=== PATIENT | male | born 1995 | race Caucasian/White ===

== ENCOUNTER 2020-03-10 16:52 | Emergency (ER) | payer BC ==
[2020-03-10 17:02] VITALS: BP 118/78; PULSE 75; TEMP 99.2; BMI 21.4
--- OUTSIDE RECORDS SUMMARY | 2020-03-10 17:06 | XMS ---
:1995 [facility] Providers Name Role Phone Preston Brown Steven Unavailable Apuzzo, Steven Unavailable Apuzzo, Steven Unavailable Apuzzo, Steven Unavailable Apuzzo, Steven Unavailable Apuzzo, Steven Unavailable Apuzzo, Steven Unavailable Apuzzo, Steven Unavailable Apuzzo, Steven Unavailable Apuzzo, Steven Unavailable Re-disclosure Warning The records that you are about to access may contain information from federally- assisted alcohol or drug abuse programs. If such information is present, then the following federally mandated warning applies: This information has been disclosed to you from records protected by federal confidentiality rules (42 CFR part 2). The federal rules prohibit you from making any further disclosure of this information unless further disclosure is expressly permitted by the written consent of the person to whom it pertains or as otherwise permitted by 42 CFR part 2. A general authorization for the release of medical or other information is NOT sufficient for this purpose. The Federal rules restrict any use of the information to criminally investigate or prosecute any alcohol or drug abuse patient.The records that you are about to access may contain highly sensitive health information, the redisclosure of which is protected by Article 27-F of the [place] State Public Health law. If you continue you may haveaccess to information: Regarding HIV / AIDS; Provided by facilities licensed or operated by the [facility] Office of Mental Health; or Provided by the [facility] Office for People With Developmental Disabilities. If such information is present, then the following [facility] mandated warning applies: This information has been disclosed to you from confidential records which are protected by state law. State law prohibits you from making any further disclosure of this information without the specific written consent of the person to whom it pertains, or as otherwise permitted by law. Any unauthorized further disclosure in violation of state law may result in a fine or halfway sentence or both. A general authorization for the release of medical or other information is NOT sufficient authorization for further disclosure. Encounters Encounter Providers Location Date Indications Data Source(s ) Attender: Preston 02/28/2020 [facility] ( [facility] 12:00:00 AM EDT Medical, PC) Office Medications Medication Brand Start Product Dose Route Administrative Pharmacy [facility] Indications Reaction Description Data Name Date Form Instructions Instructions Source(s) pantoprazol PANTOP DELAYED 90 complet HURTADO TOPRAZOLE [facility] (St e 40 MG RAZOLE 2019 RELEASE ed [facility] Delayed :[id number] 12:00: TABLET Medica l, Release 0 00 AM PC) Oral Tablet EDT PANTOPRAZOL [id number] KETOCONAZOL complet KETOCONA ZOLE [facility] (St E EXTERNAL 2018 ed EXTERNAL [facility] SHAMPOO: 12:00: SHAMPOO Medica l, 00 AM PC) EDT Fluconazole FLUCON 09/21/ TABLET 4 complet FLUC ONAZOLE [facility] (St 150 MG Oral AZOLE: 2018 ed [facility] Tablet [id number] 12:00: Medical, FLUCONAZOLE 00 AM PC) :[id number] EDT NYSTATIN complet NYSTATIN ME D[facility] (St EXTERNAL 2017 ed EXTERNAL [facility] OINTMENT: 12:00: OINTMENT Medi siva, 00 AM PC) EDT Insurance Providers Payer name Policy type Policy ID Covered Covered green party's Policy P lenore / Coverage green party ID relationship to [employer] ormation type rasheed BC PPO [id number] SP [id number] EMPIRE [id number]/B 00 LUE [employer] [place] EMPIRE [id number] [facility]/ 59 [facility] Problems, Conditions, and Diagnoses Code Display Name Description Problem Type Effective Data Sour ce(s) Dates K21.9 Gastro-esophageal GASTRO-ESOPHAGEAL Problem 02/28/2020 [facility] (St reflux disease REFLUX DISEASE 12:00:00 AM [facility] without esophagitis WITHOUT ESOPHAGITIS EDT Medical, PC) B35.4 Tinea corporis TINEA CORPORIS Problem 09/21/2018 [facility] (St 12:00:00 AM [facility] T Medical, ) 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 02/04/2018 [facility] D[facility] (St genital organs, GENITAL ORGANS, 12:00:00 AM [facility] unspecified UNSPECIFIED EDT Medical, PC) Z30.09 Encounter for other ENCOUNTER FOR OTHER Problem 018 [facility] (St general counseling GENERAL COUNSELING 12:00:00 AM [facility] and advice on AND ADVICE ON T Medical, ) contraception CONTRACEPTION Z11.3 Encounter for ENCOUNTER FOR Problem 02/04/2018 [facility] ( St screening for SCREENING FOR 12:00:00 AM [facility] infections with a INFECTIONS WITH A EDT Medical, ) predominantly PREDOMINANTLY sexual mode of SEXUAL MODE OF transmission TRANSMISSION 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, 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, NOT Problem 12/01/2017 MED[facility] EN (St elsewhere ELSEWHERE 12:00:00 AM [facility] classified CLASSIFIED EDT Medical, PC) B37.42 Candidal balanitis CANDIDAL BALANITIS Problem 8 [facility] R21 Rash and other RASH AND OTHER Problem 12/01/2017 [facility] (St nonspecific skin NONSPECIFIC SKIN 12:00:00 AM J ohn's eruption ERUPTION EDT Medical, PC) 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 CHLAMYDIAL CYSTITIS Problem 018 [facility] (St and urethritis AND URETHRITIS 12:00:[facility] ) B36.0 Pityriasis PITYRIASIS Problem 11/02/2017 [facility] (St versicolor VERSICOLOR [facility]:00:[facility] 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 OF Problem 018 [facility] (St trunk TRUNK 12:00:00 AM [facility], ) A69.29 Other conditions OTHER CONDITIONS Problem 10/12/2017 ME D[facility] (St associated with ASSOCIATED WITH 12:00:00 AM [facility] Lyme disease LYME DISEASE ED Medical, P C) R53.83 Other fatigue OTHER FATIGUE Problem 10/12/2017 [facility] ( St 12:00:00 AM [facility], ) M54.2 Cervicalgia CERVICALGIA Problem 10/12/2017 [facility] (St 12:00:00 AM [facility], ) R19.7 Diarrhea, DIARRHEA, Problem 10/12/2017 [facility] (St unspecified UNSPECIFIED 12:00:00 AM [facility], ) Surgeries/Procedures Procedure Description Date Indications Data Source(s) Documentation of current 02/28/2020 [facility] ([facility] medications (procedure) 12:00:00 AM EDT jermaine, ) Documentation of current 02/28/2020 [facility] ([facility] medications (procedure) 12:00:00 AM EDT [facility], ) OFFICE OUTPATIENT VISIT 02/28/2020 [facility] EN ([facility] 15 MINUTES 12:00:00 AM [facility], ) Documentation of current 09/21/2018 [facility] ([facility] medications (procedure) 12:00:00 AM EDT jermaine, ) Documentation of current 09/21/2018 [facility] ([facility] medications (procedure) 12:00:00 AM EDT jermaine, ) Documentation of current 09/21/2018 [facility] ([facility] medications (procedure) 12:00:00 AM EDT jermaine, ) Documentation of current 09/21/2018 [facility] ([facility] medications (procedure) 12:00:00 AM EDT jermaine, ) OFFICE OUTPATIENT VISIT 09/21/2018 [facility] ([facility] 25 MINUTES 12:00:00 AM [facility], ) COLLECTION VENOUS BLOOD 09/21/2018 [facility] ([facility] VENIPUNCTURE 12:00:00 AM [facility], ) Documentation of current 02/04/2018 [facility] ([facility] medications (procedure) 12:00:00 AM EDT edical, ) OFFICE OUTPATIENT VISIT 02/04/2018 [facility] EN ([facility] 25 MINUTES 12:00:00 AM EDT Medical, ) COLLECTION VENOUS BLOOD 02/04/2018 [facility]PATIENT VISIT 12/01/2017 [facility] ([facility] 10 [facility] HANDLG&/OR CONVEY OF SPEC 10/12/2017 ME [facility] ([facility] FOR TR OFFICE TO LAB 12:00:00 AM EDT [facility], ) COLLECTION VENOUS BLOOD 10/12/2017 [facility] ([facility] Results ID Date Data Source [id number] 09/21/2018 12:00:00 AM EDT [facility] (St [facility], ) Name Value Range Interpretation Code Description Data Nadia rce(s) Supporting Document(s ) RPR Non Reactive Normal (applies to [facility] ( St non-numeric [facility] results) [facility], ) ID Date Data Source [id number] 09/21/2018 12:00:00 AM EDT [facility] (St [facility], ) Name Value Range Interpretation Description Data Sup porting Code Source(s) Document(s ) Interpretive Normal (applies [facility] (St Comment to non-numeric [facility] results) [facility], ) Triiodothyronine 3.6 Normal (applies [facility] (St (T3), Free pg/mL to non-numeric [facility] results) [facility], ) ID Date Data Source [id number] 09/21/2018 12:00:00 AM EDT [facility] (St [facility], ) Name Value Range Interpretation Code Description Data Nadia rce(s) Supporting Document(s ) T4,Free 1.30 ng/dL Normal (applies to [facility] (St (Direct) non-numeric [facility] results) [facility], ) ID Date Data Source [id number] 09/21/2018 12:00:00 AM EDT [facility] (St [facility], ) Name Value Range Interpretation Code Description Data Nadia rce(s) Supporting Document(s ) TSH 0.315 Below low normal [facility] (St uIU/mL [facility], ) ID Date Data Source [id number] 09/21/2018 12:00:00 AM EDT [facility] (St [facility], ) Name Value Range Interpretation Description Data Sup porting Code Source(s) Document(s ) HIV Screen Non Normal (applies [facility] (St 4th Reactive to non-numeric [facility] Generation results) Medical, ) wRfx ID Date Data Source [id number] 09/21/2018 12:00:00 AM EDT [facility] (St [facility], ) Name Value Range Interpretation Description Data Sup porting Code Source(s) Document(s ) Vitamin D, 32.5 Normal (applies to [facility] (St 25-Hydroxy ng/mL non-numeric [facility] results) Medical, ) ID Date Data Source [id number] 09/21/2018 12:00:00 AM EDT [facility] (St [facility], ) Name Value Range Interpretation Description Data Sup porting Code Source(s) Document(s ) Hemoglobin 5.5 % Normal (applies to [facility] (St A1c/Hemoglobin. non-numeric [facility] total in Blood results) Medical, ) ID Date Data Source [id number] 09/21/2018 12:00:00 AM EDT [facility] (St [facility], ) Name Value Range Interpretation Description Data Sup porting Code Source(s) Document(s ) Chlamydia Negative Normal (applies [facility] (St trachomatis rRNA to non-numeric [facility] [Presence] in results) Medical, ) Unspecified specimen by Probe and target amplification method Neisseria Negative Normal (applies [facility] (St gonorrhoeae rRNA to non-numeric [facility] [Presence] in results) Medical, ) Unspecified specimen by Probe and target amplification method ID Date Data Source [id number] 09/21/2018 12:00:00 AM EDT [facility] (St [facility], ) Name Value Range Interpretation Code Description Data Nadia rce(s) Supporting Document(s ) HSV-1 DNA Negative Normal (applies to [facility] (St non-numeric [facility] results) Medical, ) HSV-2 DNA Negative Normal (applies to [facility] (St non-numeric [facility] results) Medical, ) ID Date Data Source [id number] 09/21/2018 12:00:00 AM EDT [facility] (St [facility], ) Name Value Range Interpretation Description Data Sup porting Code Source(s) Document(s ) Hepatitis A Negative Normal (applies [facility] (St virus IgM Ab to non-numeric [facility] [Presence] in results) Medical, ) Serum or Plasma by Immunoassay HBsAg Screen Negative Normal (applies [facility] (St to non-numeric [facility] results) Medical, PC) Hep C Virus Ab <0.1 Normal (applies [facility] (S t to non-numeric [facility] results) Medical, PC) Hepatitis B Negative Normal (applies [facility] (St virus core IgM to non-numeric [facility] Ab [Presence] results) Medical, ) in Serum or Plasma by Immunoassay ID Date Data Source [id number] 09/21/2018 12:00:00 AM EDT [facility] ([facility], ) Name Value Range Interpretation Description Data Sup porting Code Source(s) Document(s ) Triglyceride 91 mg/dL Normal (applies [facility] (St [Mass/volume] in to non-numeric [facility] Serum or Plasma results) Medical, ) Cholesterol 194 Normal (applies [facility] (St [Mass/volume] in mg/dL to non-numeric [facility] Serum or Plasma results) Medical, PC) VLDL Cholesterol 18 mg/dL Normal (applies [facility] (St Siva to non-numeric [facility] results) Medical, ) HDL Cholesterol 45 mg/dL Normal (applies [facility] ( St to non-numeric [facility] results) Medical, ) LDL Cholesterol 131 Above high normal [facility] (St Calc mg/dL [facility], ) ID Date Data Source [id number] 09/21/2018 12:00:00 AM EDT [facility] ([facility], ) Name Value Range Interpretation Description Data Sup porting Code Source(s) Document(s ) Specific gravity 1.027 Normal (applies [facility] (St of Pericardial to non-numeric [facility] fluid by results) Medical, Refractometry ) pH of Lower 6.5 Normal (applies [facility] (St respiratory to non-numeric [facility] specimen results) Medical, PC) Urine-Color Yellow Normal (applies [facility] (St to non-numeric [facility] results) Medical, PC) Appearance of Clear Normal (applies [facility] (St Abdomen to non-numeric [facility]'s results) Medical, PC) WBC Esterase Negative Normal (applies [facility] (St to non-numeric [facility] results) Medical, PC) Protein Negative Normal (applies [facility] (St [Mass/volume] in to non-numeric [facility] Lower results) Medical, respiratory PC) specimen Glucose Negative Normal (applies [facility] (St [Mass/volume] in to non-numeric [facility] Urine collected results) Medical, for unspecified PC) duration Ketones Trace Abnormal (applies [facility] (St [Presence] in to non-numeric [facility] Blood by Tablet results) Medical, PC) Occult Blood Negative Normal (applies [facility] (St to non-numeric [facility] results) Medical, PC) Urobilinogen,Jairo 1.0 EU/dL Normal (applies [facility] (St i-Qn to non-numeric [facility] results) Medical, PC) Bilirubin Negative Normal (applies [facility] (St [Presence] in to non-numeric [facility] Peritoneal fluid results) Medical, PC) Nitrite, Urine Negative Normal (applies [facility] (S t to non-numeric [facility] results) Medical, PC) Microscopic Normal (applies [facility] (St Examination to non-numeric [facility] results) Medical, PC) ID Date Data Source [id number] 09/21/2018 12:00:00 AM EDT [facility] (St [facility], PC) Name Value Range Interpretation Description Data Sup porting Code Source(s) Document(s ) Glucose 94 mg/dL Normal (applies [facility] (St [Mass/volume] in to non-numeric [facility] Urine collected for results) Medical, unspecified PC) duration Urea nitrogen 9 mg/dL Normal (applies [facility] (St [Mass/volume] in to non-numeric [facility] Serum or Plasma results) Medical, PC) Creatinine 1.03 Normal (applies [facility] (St [Interpretation] in mg/dL to non-numeric [facility] s Urine results) Medical, PC) eGFR If Africn Am 119 Normal (applies [facility] (St mL/min/1 to non-numeric [facility] .73 results) Medical, PC) eGFR If NonAfricn 103 Normal (applies [facility] (St Am mL/min/1 to non-numeric [facility] .73 results) Medical, PC) BUN/Creatinine 9 Normal (applies [facility] (S t Ratio to non-numeric [facility] results) Medical, ) Sodium 140 Normal (applies [facility] (St [Moles/volume] in mmol/L to non-numeric [facility] Serum or Plasma results) Medical, ) Potassium 4.6 Normal (applies [facility] (St [Mass/volume] in mmol/L to non-numeric [facility] Blood results) Medical, ) Calcium 10.0 Normal (applies [facility] (St [Moles/volume] in mg/dL to non-numeric [facility] Urine collected for results) [facility], unspecified ) duration Chloride 99 Normal (applies [facility] (St [Moles/volume] in mmol/L to non-numeric [facility] Serum or Plasma results) Medical, ) Microalbumin 5.0 g/dL Normal (applies [facility] (St [Mass/time] in to non-numeric [facility] Urine collected for results) [facility], unspecified ) duration Protein 7.7 g/dL Normal (applies [facility] (St [Mass/volume] in to non-numeric [facility] Serum or Plasma results) Medical, ) A/G Ratio 1.9 Normal (applies [facility] (St to non-numeric [facility] results) Medical, ) Globulin, Total 2.7 g/dL Normal (applies [facility] ( St to non-numeric [facility] results) Medical, ) Alkaline 59 IU/L Normal (applies [facility] (St phosphatase to non-numeric [facility] [Enzymatic results) Medical, activity/volume] in PC) Serum, Plasma or Blood Bilirubin.total 0.4 Normal (applies [facility] ( St [Mass/volume] in mg/dL to non-numeric [facility] Serum or Plasma results) Medical, ) Aspartate 16 IU/L Normal (applies [facility] (St aminotransferase to non-numeric [facility] [Enzymatic results) Medical, activity/volume] in PC) Serum or Plasma ID Date Data Source [id number] 09/21/2018 12:00:00 AM EDT [facility] (St [facility], ) Name Value Range Interpretation Description Data Sup porting Code Source(s) Document(s ) Leukocytes 8.8 Normal (applies [facility] (St [#/volume] in x10E3/uL to non-numeric [facility] Blood by results) Medical, ) Automated count Erythrocytes 5.45 Normal (applies [facility] (St [#/volume] in x10E6/uL to non-numeric [facility] Blood by results) [facility], ) Automated count Hematocrit 47.9 % Normal (applies [facility] (St [Volume to non-numeric [facility]'s Fraction] of results) [facility], ) Blood by Automated count Hemoglobin 16.4 Normal (applies [facility] (St [Mass/volume] in g/dL to non-numeric [facility] Blood results) [facility], ) MCV 88 fL Normal (applies [facility] (St to non-numeric [facility]'s results) [facility], ) MCH 30.1 pg Normal (applies [facility] (St to non-numeric [facility]'s results) [facility], ) MCHC 34.2 Normal (applies [facility] (St g/dL to non-numeric [facility] results) [facility], ) RDW 13.7 % Normal (applies [facility] (St to non-numeric [facility]'s results) [facility], ) Platelets 237 Normal (applies [facility] (St [#/area] in x10E3/uL to non-numeric [facility] Blood by results) [facility], ) Microscopy high power field Neutrophils [#] 66 % Normal (applies [facility] ( St in Body fluid by to non-numeric [facility] Manual count results) [facility], ) Lymphs 25 % Normal (applies [facility] (St to non-numeric [facility]'s results) [facility], ) Monocytes 8 % Normal (applies [facility] (St [#/volume] in to non-numeric [facility] Cord blood results) [facility], ) Eos 1 % Normal (applies [facility] (St to non-numeric [facility]'s results) [facility], ) Neutrophils 5.8 Normal (applies [facility] (St (Absolute) x10E3/uL to non-numeric [facility] results) [facility], ) Basos 0 % Normal (applies [facility] (St to non-numeric [facility]'s results) [facility], ) Lymphs 2.2 Normal (applies [facility] (St (Absolute) x10E3/uL to non-numeric [facility]'s results) [facility], ) Eos (Absolute) 0.0 Normal (applies [facility] (S t x10E3/uL to non-numeric [facility] results) [facility], ) Monocytes(Absolu 0.7 Normal (applies [facility] (St te) x10E3/uL to non-numeric [facility] results) [facility], ) Baso (Absolute) 0.0 Normal (applies [facility] ( St x10E3/uL to non-numeric [facility] results) Medical, ) Immature 0 % Normal (applies [facility] (St Granulocytes to non-numeric [facility]'s results) Medical, ) Immature Grans 0.0 Normal (applies [facility] (S t (Abs) x10E3/uL to non-numeric [facility] results) Medical, ) ID Date Data Source [id number] 02/04/2018 12:00:00 AM EDT [facility] (St [facility], ) Name Value Range Interpretation Code Description Data Nadia rce(s) Supporting Document(s ) C-Reactive 0.6 mg/L Normal (applies to [facility] (St Protein, non-numeric [facility] Quant results) [facility], ) ID Date Data Source [id number] 02/04/2018 12:00:00 AM EDT [facility] (St [facility], ) Name Value Range Interpretation Description Data Sup porting Code Source(s) Document(s ) Sedimentation 2 mm/hr Normal (applies [facility] (St Rate-Westergren to non-numeric [facility]'s results) [facility], ) ID Date Data Source [id number] 02/04/2018 12:00:00 AM EDT [facility] (St [facility], ) Name Value Range Interpretation Code Description Data Nadia rce(s) Supporting Document(s ) RPR Non Reactive Normal (applies to [facility] ( St non-numeric [facility]'s results) [facility], ) ID Date Data Source [id number] 02/04/2018 12:00:00 AM EDT [facility] (St [facility], ) Name Value Range Interpretation Description Data Sup porting Code Source(s) Document(s ) HIV Screen Non Normal (applies [facility] (St 4th Reactive to non-numeric [facility] Generation results) [facility], ) wRfx ID Date Data Source [id number] 02/04/2018 12:00:00 AM EDT [facility] (St [facility], ) Name Value Range Interpretation Description Data Sup porting Code Source(s) Document(s ) Neisseria Negative Normal (applies [facility] (St gonorrhoeae rRNA to non-numeric [facility] [Presence] in results) [facility], ) Unspecified specimen by Probe and target amplification method Chlamydia Negative Normal (applies [facility] (St trachomatis rRNA to non-numeric [facility] [Presence] in results) [facility], ) Unspecified specimen by Probe and target amplification method ID Date Data Source [id number] 02/04/2018 12:00:00 AM EDT [facility] ( [facility]) Name Value Range Interpretation Description Data Sup porting Code Source(s) Document(s ) Hepatitis A Negative Normal (applies [facility] (St virus IgM Ab to non-numeric [facility]'s [Presence] in results) Medical, ) Serum or Plasma by Immunoassay HBsAg Screen Negative Normal (applies [facility] (St to non-numeric [facility]'s results) Medical, ) Hepatitis B Negative Normal (applies [facility] (St virus core IgM to non-numeric [facility] Ab [Presence] results) Medical, ) in Serum or Plasma by Immunoassay Hep C Virus Ab 0.1 s/co Normal (applies [facility] (S t ratio to non-numeric [facility] results) Medical, ) ID Date Data Source [id number] 02/04/2018 12:00:00 AM [facility] Name Value Range Interpretation Description Data Sup porting Code Source(s) Document(s ) Glucose 85 mg/dL Normal (applies [facility] (St [Mass/volume] in to non-numeric [facility] Urine collected for results) [facility], unspecified PC) duration Urea nitrogen 17 mg/dL Normal (applies [facility] (St [Mass/volume] in to non-numeric [facility] Serum or Plasma results) Medical, ) Creatinine 0.98 Normal (applies [facility] (St [Interpretation] in mg/dL to non-numeric Fabrizio' s Urine results) Medical, ) eGFR If NonAfricn 110 Normal (applies [facility] (St Am mL/min/1 to non-numeric Fab[facility]'s .73 results) Medical, ) eGFR If Africn Am 127 Normal (applies [facility] (St mL/min/1 to non-numeric [facility] .73 results) Medical, ) BUN/Creatinine 17 Normal (applies [facility] (S t Ratio to non-numeric [facility]'s results) Medical, ) Sodium 144 Normal (applies [facility] (St [Moles/volume] in mmol/L to non-numeric [facility] Serum or Plasma results) Medical, ) Chloride 101 Normal (applies [facility] (St [Moles/volume] in mmol/L to non-numeric [facility] Serum or Plasma results) Medical, ) Potassium 4.6 Normal (applies [facility] (St [Mass/volume] in mmol/L to non-numeric [facility] Blood results) Medical, ) Protein 7.6 g/dL Normal (applies [facility] (St [Mass/volume] in to non-numeric [facility] Serum or Plasma results) Medical, ) Calcium 10.0 Normal (applies [facility] (St [Moles/volume] in mg/dL to non-numeric [facility] Urine collected for results) [facility], unspecified ) duration Microalbumin 5.3 g/dL Normal (applies [facility] (St [Mass/time] in to non-numeric [facility]'s Urine collected for results) [facility], unspecified ) duration Globulin, Total 2.3 g/dL Normal (applies [facility] ( St to non-numeric Fabrizio's results) Medical, ) A/G Ratio 2.3 Above high [facility] (St normal Fabrizio's [facility], ) Bilirubin.total 0.8 Normal (applies [facility] ( St [Mass/volume] in mg/dL to non-numeric [facility] Serum or Plasma results) Medical, ) Alkaline 68 IU/L Normal (applies [facility] (St phosphatase to non-numeric [facility] [Enzymatic results) Medical, activity/volume] in PC) Serum, Plasma or Blood Aspartate 16 IU/L Normal (applies MEDGEN (St aminotransferase to non-numeric [facility] [Enzymatic results) Medical, activity/volume] in ) Serum or Plasma ID Date Data Source [id number] 02/04/2018 12:00:00 AM EDT [facility] ([facility], ) Name Value Range Interpretation Description Data Sup porting Code Source(s) Document(s ) Leukocytes 6.3 Normal (applies [facility] (St [#/volume] in x10E3/uL to non-numeric [facility] Blood by results) Medical, ) Automated count Erythrocytes 5.32 Normal (applies [facility] (St [#/volume] in x10E6/uL to non-numeric [facility] Blood by results) Medical, ) Automated count Hemoglobin 15.9 Normal (applies [facility] (St [Mass/volume] in g/dL to non-numeric [facility] Blood results) Medical, ) MCV 87 fL Normal (applies [facility] (St to non-numeric [facility] results) [facility], ) Hematocrit 46.3 % Normal (applies [facility] (St [Volume to non-numeric [facility] Fraction] of results) [facility], ) Blood by Automated count MCHC 34.3 Normal (applies [facility] (St g/dL to non-numeric [facility] results) [facility], ) MCH 29.9 pg Normal (applies [facility]GEN (St to non-numeric [facility] results) [facility], ) Platelets 184 Normal (applies [facility]GEN (St [#/area] in x10E3/uL to non-numeric [facility] Blood by results) [facility], ) Microscopy high power field RDW 13.6 % Normal (applies [facility] (St to non-numeric [facility] results) [facility], ) Neutrophils [#] 59 % Normal (applies [facility]GEN ( St in Body fluid by to non-numeric [facility] Manual count results) [facility], ) Lymphs 32 % Normal (applies [facility] (St to non-numeric [facility] results) [facility], ) Monocytes 7 % Normal (applies [facility] (St [#/volume] in to non-numeric [facility] Cord blood results) [facility], ) Eos 2 % Normal (applies [facility] (St to non-numeric [facility] results) [facility], ) Neutrophils 3.7 Normal (applies [facility]GEN (St (Absolute) x10E3/uL to non-numeric [facility] results) [facility], ) Basos 0 % Normal (applies [facility] (St to non-numeric [facility] results) [facility], ) Lymphs 2.0 Normal (applies [facility] (St (Absolute) x10E3/uL to non-numeric [facility] results) [facility], ) Monocytes(Absolu 0.4 Normal (applies [facility]GEN (St te) x10E3/uL to non-numeric [facility] results) [facility], ) Eos (Absolute) 0.1 Normal (applies [facility] (S t x10E3/uL to non-numeric [facility] results) [facility], ) Immature 0 % Normal (applies [facility] (St Granulocytes to non-numeric [facility] results) [facility], ) Baso (Absolute) 0.0 Normal (applies [facility] ( St x10E3/uL to non-numeric [facility] results) Medical, PC) Immature Grans 0.0 Normal (applies [facility]GEN (S t (Abs) x10E3/uL to non-numeric [facility] results) Medical, ) ID Date Data Source [id number] 11/02/2017 12:00:00 AM EDT [facility] ([facility], ) Name Value Range Interpretation Description Data Sup porting Code Source(s) Document(s ) QuantiFERON TB Negative Normal (applies [facility]GEN (S t Gold to non-numeric [facility] results) Medical, PC) QuantiFERON Normal (applies [facility] (St Criteria to non-numeric [facility] results) Medical, PC) QuantiFERON 0.05 IU/mL Normal (applies [facility] (St Nil Value to non-numeric [facility] results) Medical, PC) QuantiFERON TB 0.04 IU/mL Normal (applies [facility] ( St Ag Value to non-numeric [facility] results) Medical, PC) QFT TB Ag <0.01 Normal (applies [facility] (St minus Nil to non-numeric [facility] Value results) Medical, ) QuantiFERON 7.00 IU/mL Normal (applies [facility] (St Mitogen Value to non-numeric [facility] results) Medical, ) Interpretation Normal (applies [facility] (S t : to non-numeric [facility] results) Medical, ) ID Date Data Source [id number] 11/02/2017 12:00:00 AM EDT [facility] ([facility], ) Name Value Range Interpretation Description Data Sup porting Code Source(s) Document(s ) QuantiFERON Normal (applies to [facility]GEN (S t Incubation non-numeric [facility] results) Medical, ) ID Date Data Source [id number] 11/02/2017 12:00:00 AM EDT [facility] ([facility], ) Name Value Range Interpretation Description Data Sup porting Code Source(s) Document(s ) Chlamydia Negative Normal (applies [facility] (St trachomatis rRNA to non-numeric [facility] [Presence] in results) Medical, ) Unspecified specimen by Probe and target amplification method Neisseria Negative Normal (applies [facility] (St gonorrhoeae rRNA to non-numeric [facility] [Presence] in results) Medical, ) Unspecified specimen by Probe and target amplification method ID Date Data Source [id number] 10/12/2017 12:00:00 AM EDT [facility] ([facility]) Name Value Range Interpretation Description Data Sup porting Code Source(s) Document(s ) Result 1 Enterococcus Abnormal MED[facility] (St faecalis (applies to [facility] non-numeric Medical, results) PC) Antimicrobial Normal (applies [facility] (St Susceptibility to non-numeric [facility] results) Medical, ) ID Date Data Source [id number] 10/12/2017 12:00:00 AM EDT [facility] ([facility], ) Name Value Range Interpretation Description Data Sup porting Code Source(s) Document(s ) Urine Final Abnormal (applies [facility] (St Culture, report to non-numeric [facility] Routine results) Medical, ) ID Date Data Source [id number] 10/12/2017 12:00:00 AM EDT [facility] ([facility], ) Name Value Range Interpretation Description Data Sup porting Code Source(s) Document(s ) Hemoglobin 5.4 % Normal (applies to [facility] (St A1c/Hemoglobin. non-numeric [facility] total in Blood results) Medical, ) ID Date Data Source [id number] 10/12/2017 12:00:00 AM EDT [facility] ([facility], ) Name Value Range Interpretation Description Data Sup porting Code Source(s) Document(s ) Sedimentation 4 mm/hr Normal (applies [facility] (St Rate-Westergren to non-numeric [facility] results) Medical, ) C-Reactive 0.5 mg/L Normal (applies [facility] (St Protein, Quant to non-numeric [facility] results) Medical, ) ID Date Data Source [id number] 10/12/2017 12:00:00 AM EDT [facility] ([facility], ) Name Value Range Interpretation Description Data Sup porting Code Source(s) Document(s ) Thyroxine 5.2 ug/dL Normal (applies to [facility] (St (T4) non-numeric [facility] results) Medical, ) TSH 1.850 Normal (applies to [facility] (St uIU/mL non-numeric [facility] results) Medical, ) T3 Uptake 27 % Normal (applies to [facility] (St non-numeric [facility] results) Medical, ) Free 1.4 Normal (applies to [facility] (St Thyroxine non-numeric [facility] Index results) Medical, ) ID Date Data Source [id number] 10/12/2017 12:00:00 AM EDT [facility] ([facility], ) Name Value Range Interpretation Description Data Sup porting Code Source(s) Document(s ) Specific gravity 1.027 Normal (applies [facility] (St of Pericardial to non-numeric [facility] fluid by results) Medical, Refractometry PC) pH of Lower 7.0 Normal (applies [facility] (St respiratory to non-numeric [facility] specimen results) Medical, ) Urine-Color Yellow Normal (applies [facility] (St to non-numeric [facility] results) Medical, ) WBC Esterase Negative Normal (applies [facility] (St to non-numeric [facility] results) Medical, ) Appearance of Clear Normal (applies [facility] (St Abdomen to non-numeric [facility] results) Medical, PC) Protein Negative Normal (applies [facility] (St [Mass/volume] in to non-numeric [facility] Lower results) Medical, respiratory PC) specimen Glucose Negative Normal (applies [facility] (St [Mass/volume] in to non-numeric [facility] Urine collected results) Medical, for unspecified PC) duration Occult Blood Negative Normal (applies [facility] (St to non-numeric [facility] results) Medical, PC) Ketones Trace Abnormal (applies [facility] (St [Presence] in to non-numeric [facility] Blood by Tablet results) Medical, PC) Urobilinogen,Jairo 0.2 EU/dL Normal (applies [facility] (St i-Qn to non-numeric [facility] results) Medical, PC) Bilirubin Negative Normal (applies [facility] (St [Presence] in to non-numeric [facility] Peritoneal fluid results) Medical, ) Nitrite, Urine Negative Normal (applies [facility] (S t to non-numeric [facility] results) Medical, ) Microscopic Normal (applies [facility] (St Examination to non-numeric [facility] results) Medical, ) ID Date Data Source [id number] 10/12/2017 12:00:00 AM EDT [facility] ([facility], ) Name Value Range Interpretation Description Data Sup porting Code Source(s) Document(s ) Urea nitrogen 11 mg/dL Normal (applies [facility] (St [Mass/volume] in to non-numeric [facility] Serum or Plasma results) Medical, PC) Glucose 77 mg/dL Normal (applies [facility] (St [Mass/volume] in to non-numeric [facility] Urine collected for results) Medical, unspecified PC) duration eGFR If NonAfricn 89 Normal (applies [facility]GEN (St Am mL/min/1 to non-numeric [facility] .73 results) Medical, PC) Creatinine 1.17 Normal (applies [facility] (St [Interpretation] in mg/dL to non-numeric [facility]' s Urine results) Medical, PC) BUN/Creatinine 9 Normal (applies [facility]GEN (S t Ratio to non-numeric [facility] results) Medical, PC) eGFR If Africn Am 103 Normal (applies [facility] (St mL/min/1 to non-numeric [facility] .73 results) Medical, PC) Sodium 143 Normal (applies [facility] (St [Moles/volume] in mmol/L to non-numeric [facility] Serum or Plasma results) Medical, PC) Potassium 4.2 Normal (applies [facility] (St [Mass/volume] in mmol/L to non-numeric [facility] Blood results) Medical, PC) Chloride 102 Normal (applies [facility] (St [Moles/volume] in mmol/L to non-numeric [facility] Serum or Plasma results) Medical, PC) Calcium 9.7 Normal (applies [facility] (St [Moles/volume] in mg/dL to non-numeric [facility] Urine collected for results) Medical, unspecified PC) duration Carbon dioxide, 24 Normal (applies [facility] ( St total mmol/L to non-numeric [facility] [Moles/volume] in results) Medical, Serum or Plasma PC) Protein 7.1 g/dL Normal (applies [facility] (St [Mass/volume] in to non-numeric [facility] Serum or Plasma results) Medical, PC) Microalbumin 4.7 g/dL Normal (applies [facility] (St [Mass/time] in to non-numeric [facility] Urine collected for results) Medical, unspecified PC) duration Globulin, Total 2.4 g/dL Normal (applies [facility] ( St to non-numeric [facility] results) Medical, PC) A/G Ratio 2.0 Normal (applies [facility] (St to non-numeric [facility] results) Medical, PC) Bilirubin.total 0.2 Normal (applies [facility] ( St [Mass/volume] in mg/dL to non-numeric [facility] Serum or Plasma results) Medical, PC) Aspartate 28 IU/L Normal (applies [facility]GEN (St aminotransferase to non-numeric [facility] [Enzymatic results) Medical, activity/volume] in PC) Serum or Plasma Alkaline 73 IU/L Normal (applies [facility] (St phosphatase to non-numeric [facility] [Enzymatic results) Medical, activity/volume] in PC) Serum, Plasma or Blood Alanine 51 IU/L Above high MEDGEN (St aminotransferase normal [facility] [Enzymatic Medical, activity/volume] in PC) Serum or Plasma ID Date Data Source [id number] 10/12/2017 12:00:00 AM EDT [facility] ([facility], ) Name Value Range Interpretation Code Description Data Nadia rce(s) Supporting Document(s ) IgG P93 Absent Normal (applies to [facility] (St Ab. non-numeric [facility] results) Medical, PC) IgG P58 Present Abnormal (applies [facility] (St Ab. to non-numeric [facility] results) Medical, PC) IgG P66 Absent Normal (applies to [facility] (St Ab. non-numeric [facility] results) Medical, PC) IgG P45 Absent Normal (applies to [facility] (St Ab. non-numeric [facility] results) Medical, PC) IgG P41 Present Abnormal (applies [facility] (St Ab. to non-numeric [facility] results) Medical, PC) IgG P30 Absent Normal (applies to [facility] (St Ab. non-numeric [facility] results) Medical, PC) IgG P39 Present Abnormal (applies [facility] (St Ab. to non-numeric [facility] results) Medical, PC) IgG P28 Absent Normal (applies to [facility] (St Ab. non-numeric [facility] results) Medical, PC) IgG P23 Present Abnormal (applies [facility] (St Ab. to non-numeric [facility] results) Medical, PC) IgG P18 Absent Normal (applies to [facility] (St Ab. non-numeric [facility] results) Medical, PC) IgM P41 Absent Normal (applies to [facility] (St Ab. non-numeric [facility] results) Medical, PC) Lyme IgG Negative Normal (applies to [facility] (St WB non-numeric [facility] Interp. results) Medical, PC) IgM P39 Absent Normal (applies to [facility] (St Ab. non-numeric [facility] results) [facility], ) IgM P23 Absent Normal (applies to [facility]GEN (St Ab. non-numeric [facility] results) [facility], ) Lyme IgM Negative Normal (applies to [facility] (St WB non-numeric [facility] Interp. results) [facility], ) ID Date Data Source [id number] 10/12/2017 12:00:00 AM EDT [facility] ([facility], ) Name Value Range Interpretation Description Data Sup porting Code Source(s) Document(s ) Written Normal (applies to MEDGEN (St Authorization non-numeric [facility] results) [facility], ) ID Date Data Source [id number] 10/12/2017 12:00:00 AM EDT [facility] (St [facility], ) Name Value Range Interpretation Description Data Sup porting Code Source(s) Document(s ) Cholesterol 194 Normal (applies [facility]GEN (St [Mass/volume] in mg/dL to non-numeric [facility] Serum or Plasma results) [facility], ) Triglyceride 260 Above high normal MEDGEN (S t [Mass/volume] in mg/dL [facility] Serum or Plasma [facility], ) HDL Cholesterol 45 mg/dL Normal (applies [facility]GEN ( St to non-numeric [facility] results) [facility]) VLDL Cholesterol 52 mg/dL Above high normal MEDGE N (St [facility], ) LDL Cholesterol 97 mg/dL Normal (applies [facility] ( St Calc to non-numeric [facility] results) [facility]) ID Date Data Source [id number] 10/12/2017 12:00:00 AM EDT [facility] ([facility], ) Name Value Range Interpretation Description Data Sup porting Code Source(s) Document(s ) Erythrocytes 5.13 Normal (applies [facility]GEN (St [#/volume] in x10E6/uL to non-numeric [facility] Blood by results) [facility], ) Automated count Leukocytes 7.4 Normal (applies [facility] (St [#/volume] in x10E3/uL to non-numeric [facility] Blood by results) [facility], ) Automated count Hematocrit 45.1 % Normal (applies [facility] (St [Volume to non-numeric [facility] Fraction] of results) [facility]) Blood by Automated count Hemoglobin 15.4 Normal (applies [facility]GEN (St [Mass/volume] in g/dL to non-numeric [facility] Blood results) [facility], ) MCV 88 fL Normal (applies [facility]GEN (St to non-numeric [facility]'s results) [facility], ) MCH 30.0 pg Normal (applies [facility]GEN (St to non-numeric [facility]'s results) [facility], ) MCHC 34.1 Normal (applies [facility]GEN (St g/dL to non-numeric [facility] results) [facility], ) RDW 14.6 % Normal (applies [facility] (St to non-numeric [facility]'s results) [facility], ) Platelets 219 Normal (applies [facility]GEN (St [#/area] in x10E3/uL to non-numeric [facility] Blood by results) [facility], ) Microscopy high power field Lymphs 30 % Normal (applies [facility]GEN (St to non-numeric [facility]'s results) [facility], ) Neutrophils [#] 58 % Normal (applies MEDGEN ( St in Body fluid by to non-numeric [facility] Manual count results) [facility], ) Monocytes 10 % Normal (applies [facility] (St [#/volume] in to non-numeric [facility] Cord blood results) [facility], ) Eos 2 % Normal (applies [facility] (St to non-numeric [facility]'s results) [facility], ) Basos 0 % Normal (applies [facility]GEN (St to non-numeric [facility]'s results) [facility], ) Neutrophils 4.2 Normal (applies MEDGEN (St (Absolute) x10E3/uL to non-numeric [facility] results) [facility], ) Monocytes(Absolu 0.8 Normal (applies MEDGEN (St te) x10E3/uL to non-numeric [facility] results) [facility], ) Lymphs 2.2 Normal (applies [facility]GEN (St (Absolute) x10E3/uL to non-numeric [facility] results) [facility], ) Baso (Absolute) 0.0 Normal (applies MEDGEN ( St x10E3/uL to non-numeric [facility] results) [facility], ) Eos (Absolute) 0.2 Normal (applies MEDGEN (S t x10E3/uL to non-numeric [facility] results) [facility], ) Immature 0 % Normal (applies [facility] (St Granulocytes to non-numeric [facility] results) [facility], ) Immature Grans 0.0 Normal (applies MEDGEN (S t (Abs) x10E3/uL to non-numeric [facility], ) Procedure Social History Code Duration Value Status Description Data Source(s ) Smoking 02/28/2020 quit smoke completed quit smoke -2019, [facility] (St 12:00:00 AM EDT -2019, uses uses cannabis [facility] s [facility], cannabis products (oral) ) products (oral) rare ETOH rare ETOH Smoking 02/28/2020 Unknown if ever completed Unknown if ever MEDG EN (St 12:00:00 AM EDT smoked smoked [facility], ) Vital Signs ID Date Data Source UNK Name Value Range Interpretation Code Description Data Source(s) Respiratory rate 14 /min 14 /min MED[facility] ( [facility] , ) Body temperature 98 F 98 F MEDGEN ( [facility]) Body mass index 21.9 kg/m2 21.9 kg/m2 MEDGEN (S t (BMI) [Ratio] [facility], ) Diastolic blood 74 mm[Hg] 74 mm[Hg] MEDGEN (S t pressure [facility]) Systolic blood 100 mm[Hg] 100 mm[Hg] [facility] ([facility]) Body weight 148 lb 148 lb MED[facility] ([facility]) Body height 69 in 69 in MEDGEN ([facility]) Heart rate 82 /min 82 /min MED[facility] ([facility]) Respiratory rate 14 /min 14 /min MED[facility] ( [facility]) Inhaled oxygen 98 % 98 % MEDGEN ([facility], ) Body mass index 22 kg/m2 22 kg/m2 MEDGEN (S t (BMI) [Ratio] [facility]) Diastolic blood 80 mm[Hg] 80 mm[Hg] MEDGEN (S t pressure [facility]) Systolic blood 102 mm[Hg] 102 mm[Hg] [facility] ([facility]) Body weight 149 lb 149 lb MEDGEN ([facility]) Body height 69 in 69 in MEDGEN ([facility]) Heart rate 70 /min 70 /min [facility] ([facility]) Respiratory rate 14 /min 14 /min MEDGEN ( [facility]) Inhaled oxygen 98 % 98 % [facility] ([facility], ) Body mass index 22 kg/m2 22 kg/m2 MEDGEN (S t (BMI) [Ratio] [facility], ) Diastolic blood 72 mm[Hg] 72 mm[Hg] MEDGEN (S t pressure [facility] , ) Systolic blood 118 mm[Hg] 118 mm[Hg] MEDGEN ([facility] , ) Body weight 149 lb 149 lb MEDGEN ([facility]) Body height 69 in 69 in MEDGEN ([facility]) Heart rate 78 /min 78 /min [facility] ([facility]) Respiratory rate 14 /min 14 /min MEDGEN ( [facility]) Inhaled oxygen 98 % 98 % [facility] ([facility], ) Body mass index 22 kg/m2 22 kg/m2 MEDGEN (S t (BMI) [Ratio] [facility], ) Diastolic blood 60 mm[Hg] 60 mm[Hg] MEDGEN (S t pressure [facility]) Systolic blood 120 mm[Hg] 120 mm[Hg] MED[facility] ([facility]) Body weight 149 lb 149 lb MED[facility] ([facility]) Body height 69 in 69 in [facility] ([facility]) Heart rate 78 /min 78 /min [facility] ([facility]) Respiratory rate 14 /min 14 /min MED[facility] ( [facility]) Inhaled oxygen 98 % 98 % [facility] ([facility], ) Body mass index 22 kg/m2 22 kg/m2 MEDGEN (S t (BMI) [Ratio] [facility], ) Diastolic blood 60 mm[Hg] 60 mm[Hg] MEDGEN (S t pressure [facility] , ) Systolic blood 102 mm[Hg] 102 mm[Hg] MEDGEN ([facility] , ) Body weight 149 lb 149 lb MEDGEN ([facility]) Body height 69 in 69 in MED[facility] ([facility]) Heart rate 78 /min 78 /min [facility] ([facility]) Respiratory rate 14 /min 14 /min [facility] ( [facility]) Body temperature 98.7 F 98.7 F [facility] ( [facility]) Inhaled oxygen 98 % 98 % [facility] ([facility]) Body mass index 22 kg/m2 22 kg/m2 [facility] ([facility] (BMI) [Ratio] [facility]) Diastolic blood 60 mm[Hg] 60 mm[Hg] [facility] (S t [facility]) Systolic blood 100 mm[Hg] 100 mm[Hg] [facility] ([facility]) Body weight 149 lb 149 lb [facility] ([facility]) Body height 69 in 69 in [facility] ([facility])
[2020-03-10] MEDS ORDERED: KETOROLAC TROMETHAMINE 30 MG/1 ML VIAL IM ONE (17:07)
[2020-03-10] MEDS ORDERED: AMPICILLIN NA/SULBACTAM NA 3 GM in SODIUM CHLORIDE 100 ML IVPB ONE (17:08)
--- NOTE | 2020-03-10 17:08 | PDOC ---
History of Present Illness - General Chief Complaint: Bone Injury Stated Complaint: R hand injury - History of Present Illness Initial Comments: 03/10/20 17:07 24 M immunocompromised Chronic inflammatory demyelinating polyneuropathy (CIDP) and allergic to isopropyl alcohol presented back to the ED for evaluation of the right arm swollen s/p casting. Patient presented to the ED after punching a wall. After one week of casting, patient arm got more pain, and more swelling. One day after casting, he had severe pain; thus, he loosened it a bit. Now, he experienced some numbness on the fingers, and more pain on the forearm. PMHX: as in HPI PSHX: see below Meds: none Allergies: isporopyl alcohol Tob:none Etoh: none Rec drugs: marijuana ROS GENERAL/CONSTITUTIONAL: No fever or chills. No weakness. HEAD, EYES, EARS, NOSE AND THROAT: No change in vision. No ear pain or discharge. No sore throat. CARDIOVASCULAR: No chest pain or shortness of breath RESPIRATORY: No cough, wheezing, or hemoptysis. GASTROINTESTINAL: No nausea, vomiting, diarrhea or constipation. GENITOURINARY: No dysuria, frequency, or change in urination. MUSCULOSKELETAL: + right muscle swelling or pain. No neck or back pain. SKIN: No rash NEUROLOGIC: No headache, vertigo, loss of consciousness, or change in strength/sensation. ENDOCRINE: No increased thirst. No abnormal weight change HEMATOLOGIC/LYMPHATIC: No anemia, easy bleeding, or history of blood clots. ALLERGIC/IMMUNOLOGIC: No hives or skin allergy. PE GENERAL: Awake, alert, and fully oriented, in no acute distress wearing a cast. HEAD: No signs of trauma, normocephalic, atraumatic EYES: PERRLA, EOMI, sclera anicteric, conjunctiva clear ENT: Auricles normal inspection, hearing grossly normal, nares patent, o ropharynx clear without exudates. Moist mucosa NECK: Normal ROM, supple, no lymphadenopathy, JVD, or masses LUNGS: No distress, speaks full sentences, clear to auscultation bilaterally HEART: Regular rate and rhythm, normal S1 and S2, no murmurs, rubs or gallops, peripheral pulses normal and equal bilaterally. ABDOMEN: Soft, nontender, normoactive bowel sounds. No guarding, no rebound. No masses EXTREMITIES : Normal range of motion on all fingers, wrist, elbow, + right hand edema. +normal pulses. No erythema. +1 tiny cut noticed on the MCP . NEUROLOGICAL: Cranial nerves II through XII grossly intact. Normal speech, normal gait, no focal sensorimotor deficits SKIN: Warm, Dry, normal turgor, no rashes or lesions noted 03/10/20 17:24 03/10/20 17:46 Past History - Medical History Allergies/Adverse Reactions: Allergies Allergy/AdvReac Type Severity Reaction Status Date / Time isopropyl alcohol Allergy Mild Hives Verified 03/03/20 11:48 Home Medications: Ambulatory Orders Ibuprofen [Motrin -] 600 mg PO TID PRN #90 tablet 03/03/20 Medical Marijuana [Medical Marijuana Oil] 03/03/20 Amox-Tr/K Cl [Augmentin - 875Mg Tablet] 1 tab PO BID #14 tablet 03/10/20 Amoxicillin/Potassium Clav [Augmentin 875-125 Tablet] 1 each PO BID 7 Days #14 tablet 03/10/20 COPD: No - Immunization History Immunization Up to Date: Yes - Psycho-Social/Smoking History Smoking Status: No Smoking History: Never smoked Have you smoked in the past 12 months: No Number of Cigarettes Smoked Daily: 0 If you are a former smoker, when did you quit?: 2019 Information on smoking cessation initiated: No 'Breaking Loose' booklet given: 03/03/20 - Substance Abuse Hx (Audit-C & DAST Scrn) How often the patient has a drink containing alcohol: Never Score: In Men: 4 or > Positive; In Women: 3 or > Positive: 0 Screen Result (Pos requires Nsg. Audit-10AR): Negative In the last yr the pt used illegal drug/Rx for NonMed reason: No Score: Yes response is considered Positive: 0 Screen Result (Positive result requires Nsg. DAST-10): Negative *Physical Exam - Vital Signs Last Vital Signs Temp Pulse Resp BP Pulse Ox 99.2 F 75 18 118/78 100 03/10/20 16:53 03/10/20 16:53 03/10/20 16:53 03/10/20 16:53 03/10/20 16:53 ED Treatment Course - LABORATORY CBC & Chemistry Diagram: 03/10/20 17:27 03/10/20 17:50 Medical Decision Making - Medical Decision Making 03/10/20 18:09 24M with chronic inflammatory demyelnating polyneuropathy presented back to the ED with worsening pain s/p ulnar gutter splint. -has significant swelling, pain, but strong pulse -one tiny abrasion on the dorsal arm (new?) Obtained: CBC, CMP to look for infection. -Gave ice to decrease swelling. -Give Unysm to cover one dose of infection. -Patient was advised to stay in the hospital for IV antibiotic, but he politely declined. He told he had some bad reaction to the several antibiotic. He knew that clindamysin was not good to cover his previous infection. He had bad reaction when it came to bactrim. He was on dyxocycline in the past. -Talked to otc clerk Orthopedic service. He can call on Thursday at 9am, stated that he was seen in the ED. He can see Dr. Aguilera on Thursday. If not, he can see on Thursday with Red. -Order CT hand to r/o fracture. 03/10/20 18:18 03/10/20 18:22 Icing really helped decreased the inflammation. He felt roz.r Discharge - Discharge Information Problems reviewed: Yes Clinical Impression/Diagnosis: Fracture, hamate Hand fracture, right Qualifiers: Encounter type: initial encounter Fracture type: closed Qualified Code(s): S62.91XA - Unspecified fracture of right wrist and hand, initial encounter for closed fracture Cellulitis Qualifiers: Site of cellulitis of extremity: upper extremity Laterality: right Condition: Stable Disposition: HOME - Additional Discharge Information Prescriptions: Amoxicillin/Potassium Clav [Augmentin 875-125 Tablet] 1 each PO BID 7 Days #14 tablet Amox-Tr/K Cl [Augmentin - 875Mg Tablet] 1 tab PO BID #14 tablet - Follow up/Referral Referrals: Dorian Graham MD [Staff Physician] - - Patient Discharge Instructions Patient Printed Discharge Instructions: Cellulitis, DI for Hand Injury, Hand Fracture Additional Instructions: you have two hand fractures at the metacarpals and one wrist fracture at the hamate you were placed in a splint for immobilization, make sure to monitor for numbness, tingling, weakness, pain, fever or chills. make sure it's not too tight and able to wiggle your fingers the you should take augmentin 875 gm twice daily. you should return immediately should you change your mind for admission for iv antiobiotics and observation. you also need to follow up with hand surgeon. see referral previously given for Dr Graham. call to schedule to be seen Monday 03/12 or Tuesday 03/13. elevate hand to reduce swelling. continue taking motrin 600 mg every 8 hours as needed for pain you can call dr Faith office on Thursday 9 am to be seen by either dr Aguilera on monday 03/[address] Graham 03/13. let them know you were in the ER and spoke with the PA who stated they could get you in thursday or thursday.. - Post Discharge Activity Work/Back to School Note: Back to Work
[2020-03-10] MEDS ORDERED: KETOROLAC TROMETHAMINE 30 MG/1 ML VIAL ONE (17:36)
[2020-03-10] MEDS ORDERED: AMPICILLIN NA/SULBACTAM NA 3 GM VIAL ONE (17:37)
[2020-03-10 17:42] LABS: BASO % 0.8 % (0-2.0); EOS % 3.1 % (0-4.5); HEMATOCRIT 44.4 % (35.4-49); HEMOGLOBIN 15.3 GM/dl (11.7-16.9); LYMPH % 33.7 % (8-40); MCH 30.6 pg (25.7-33.7); MCHC 34.4 g/dl (32.0-35.9); MEAN CELL VOLUME 88.8 fl (80-96); MEAN PLT VOLUME 8.5 fl (7.5-11.1); MONO % 6.5 % (3.8-10.2); NEUT % 55.9 % (42.8-82.8); PLATELET COUNT 211 K/MM3 (134-434); WHITE BLOOD COUNT 9.4 K/mm3 (4.0-10.8)
[2020-03-10] MEDS ORDERED: KETOROLAC TROMETHAMINE 30 MG/1 ML VIAL IVPUSH ONE (17:45)
--- NOTE | 2020-03-10 17:45 | PDOC ---
Attending Attestation - Resident Resident Name: Yo Rose - ED Attending Attestation I have performed the following: I have examined & evaluated the patient, The case was reviewed & discussed with the resident, I agree w/resident's findings & plan, Exceptions are as noted - HPI HPI: 03/10/20 17:21 24 yo male h/o recent hand injury/ fx placed in splint after punching a wall. since then pt has developed severe pain and swelling in his right hand, tingling in his finger tips. has been trying to elevate hand, without relief. 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 pt states he punched a wall, denies hitting anyone in the face or mouth. currently is not on any immunomodulators, but uses cannibis to manage his symptoms. no f/c pain is severe. took motrin this am, no relief. unable to sleep due to pain. - Physicial Exam PE: 03/10/20 17:45 awake alert lungs clear bilat heart rrr no mrg examination right hand post splint removal. significant swelling dorsum, and five digist. 2+ median and ulnar pulses. able to wiggle fingers. pain with passive range of motion. no erythema. no exudate. small 1 mm abrasion over third knuckle. no purulence. no forearm erythema. no streaking. elbow shoulder from. - Medical Decision Making 03/10/20 17:48 24 yo male h/o cidp, prior lyme disease, recent punched a wall 1 week ago, now with swelling and pain to right hand. splint removed. concern for median n compression secondary to severe swelling. vs infection. pt adimently states he punched a wall. due to amount of swelling and small abrasion concern for secondary infection. pt advised to stay in hospital for iv abx, refusing. would like to go home. extensive discussion regarding risk for progressive infection especially due to h/o prior picc line infections, and immune condition. refused. will be given unasyn 3 g, started on augment, states has had bad reaction to bactrim in the past, and has been on both doxy and clinda extensively. was given hand followup previously but pt has not called to schedule yet. call placed to dr Graham to guarantee followup as refusing to stay in hospital. 03/10/20 17:52 pt feels much improved following splint removal. tingling lessened in hand finger tips. given ice. will resplint much looser to prevent secondary nerve compression or compromising circulation. sxs possible related to nerve entrapement medial and ulnar nerve from swelling to nurve tunnels. 03/10/20 18:25 case d/w ortho pa to ensure close fu, will see pt thursday or thursday if not willing to be admitted. recommend ct hadn eval underlying complex fracture in addition to metacarpal fx. pt feeling much improved. swelling improved Discharge - Discharge Information Problems reviewed: Yes Clinical Impression/Diagnosis: Hand fracture, right, Cellulitis Condition: Stable - Admission No - Additional Discharge Information Prescriptions: Amoxicillin/Potassium Clav [Augmentin 875-125 Tablet] 1 each PO BID 7 Days #14 tablet - Follow up/Referral Referrals: Dorian Graham MD [Staff Physician] - - Patient Discharge Instructions Patient Printed Discharge Instructions: Cellulitis, DI for Hand Injury, Hand Fracture Additional Instructions: understand you are leaving against medical advice. you should take augmentin 875 gm twice daily. you should return immediately should you change your mind for admission for iv antiobiotics and observation. you also need to follow up with hand surgeon. see referral previously given for Dr Graham. call to geoff to be seen Monday 03/12 or Tuesday 03/13. elevate hand to reduce swelling. continue taking motrin 600 mg every 8 hours as needed for pain you can call dr Faith office on Thursday 9 am to be seen by either dr Aguilera on monday 03/[address] Graham 03/13. let them know you were in the ER and spoke with the PA who stated they could get you in thursday or thursday.. - Post Discharge Activity
[2020-03-10 18:12] LABS: ALBUMIN 5.1 g/dl (3.4-5.0); CALCIUM 9.4 mg/dl (8.5-10); CREATININE 1.1 mg/dl (0.55-1.3); POTASSIUM 4.1 mmol/L (3.5-5.1); TOT PROT 7.7 g/dl (6.4-8.2)
[2020-03-10 18:13] LABS: BILIRUBIN,TOTAL 0.8 mg/dl (0.2-1)
--- NOTE | 2020-03-10 19:43 | PDOC ---
*Physical Exam - Vital Signs Last Vital Signs Temp Pulse Resp BP Pulse Ox 99.2 F 75 18 118/78 100 03/10/20 16:53 03/10/20 16:53 03/10/20 16:53 03/10/20 16:53 03/10/20 16:53 ED Treatment Course - LABORATORY CBC & Chemistry Diagram: 03/10/20 17:27 03/10/20 17:50 - ADDITIONAL ORDERS Additional order review: Laboratory Results 03/10/20 17:50 Sodium 139 Potassium 4.1 Chloride 104 Carbon Dioxide 27 Anion Gap 8 BUN 20.0 H Creatinine 1.1 Est GFR (CKD-EPI)AfAm 109.09 Est GFR (CKD-EPI)NonAf 94.12 Random Glucose 65 L Calcium 9.4 Total Bilirubin 0.8 AST 15 ALT 17 Alkaline Phosphatase 58 Total Protein 7.7 Albumin 5.1 H 03/10/20 17:27 RBC 5.00 MCV 88.8 MCHC 34.4 RDW 12.0 MPV 8.5 Neutrophils % 55.9 Lymphocytes % 33.7 Monocytes % 6.5 Eosinophils % 3.1 Basophils % 0.8 - Medications Given in the ED: ED Medications Discontinued Medications Generic Name Dose Route Start Last Admin Trade Name Freq PRN Reason Stop Dose Admin Ampicillin Sodium/Sulbactam 100 mls @ 200 mls/hr 03/10/20 17:08 03/10/20 17:45 Sodium 3 gm/ Sodium Chloride IVPB 03/10/20 17:37 200 mls/hr ONCE ONE Administration Ketorolac Tromethamine 30 mg 03/10/20 17:07 03/10/20 17:45 Toradol Injection - IM 03/10/20 17:08 30 mg ONCE ONE Administration Ketorolac Tromethamine 30 mg 03/10/20 17:45 03/10/20 17:51 Toradol Injection - IVPUSH 03/10/20 17:46 Not Given ONCE ONE Medical Decision Making - Medical Decision Making 03/10/20 19:42 Vital Signs Temp Pulse Resp BP Pulse Ox 99.2 F 75 18 118/78 100 03/10/20 16:53 03/10/20 16:53 03/10/20 16:53 03/10/20 16:53 03/10/20 16:[address] pt [address] out [address] Ruiz pending imaging in summary, 24 YOM h/o recent hand injury/ fx placed in splint after punching a wall. since then pt has developed severe pain and swelling in his right hand, tingling in his finger tips. has been trying to elevate hand, without relief. 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 pt states he punched a wall, denies hitting anyone in the face or mouth. currently is not on any immunomodulators, but uses cannibis to manage his symptoms. no f/c pain is severe. took motrin this am, no relief. CT with hamate fx and base of the third and fourth metacarpal; fx with soft tissue swelling pt cleaned his hand adequately NVI, no s/s to suggest compartment syndrome. likely initially splint was too tight causing the swelling, he states the swelling has since come down and improved. will need resplint in sugar tong for proper immobilization, not too tight. for his wrist and metacarpal fx. nvi after and before placement antibiotics - augmentin for the abrasion/small wound at the dorsal metacarpal #4 f/u hand/ Dr Aguilera and [place] return precautions given pt made aware of impression and plan agreeable. 03/10/20 19:43 03/10/20 20:33 03/10/20 21:09 Discharge - Discharge Information Problems reviewed: Yes Clinical Impression/Diagnosis: Fracture, hamate Hand fracture, right Qualifiers: Encounter type: initial encounter Fracture type: closed Qualified Code(s): S62.91XA - Unspecified fracture of right wrist and hand, initial encounter for closed fracture Cellulitis Qualifiers: Site of cellulitis of extremity: upper extremity Laterality: right Condition: Stable Disposition: HOME - Admission No - Additional Discharge Information Prescriptions: Amoxicillin/Potassium Clav [Augmentin 875-125 Tablet] 1 each PO BID 7 Days #14 tablet Amox-Tr/K Cl [Augmentin - 875Mg Tablet] 1 tab PO BID #14 tablet - Follow up/Referral Referrals: Dorian Graham MD [Staff Physician] - - Patient Discharge Instructions Patient Printed Discharge Instructions: Cellulitis, DI for Hand Injury, Hand Fracture Additional Instructions: you have two hand fractures at the metacarpals and one wrist fracture at the hamate you were placed in a splint for immobilization, make sure to monitor for numbness, tingling, weakness, pain, fever or chills. make sure it's not too tight and able to wiggle your fingers the you should take augmentin 875 gm twice daily. you should return immediately should you change your mind for admission for iv antiobiotics and observation. you also need to follow up with hand surgeon. see referral previously given for Dr Graham. call to schedule to be seen Monday 03/12 or Tuesday 03/13. elevate hand to reduce swelling. continue taking motrin 600 mg every 8 hours as needed for pain you can call dr Faith office on Thursday 9 am to be seen by either dr Aguilera on monday 03/[address] Graham 03/13. let them know you were in the ER and spoke with the PA who stated they could get you in thursday or thursday.. - Post Discharge Activity Work/Back to School Note: Back to Work
== END 2020-03-10 20:24 | disposition home or self-care (01) ==
LOC: FER 16:52
PROC: 3E03329 Introduction of Other Anti-infective into Peripheral Vein, Percutaneous Approach (ICD-10-PCS; principal; 2020-03-10)
PROC: 3E0233Z Introduction of Anti-inflammatory into Muscle, Percutaneous Approach (ICD-10-PCS; 2020-03-10)
DX: S62.91XA Unspecified fracture of right hand, initial encounter for closed fracture (principal); L03.113 Cellulitis of right upper limb
CPT/HCPCS: 36415; 73200-TC-RT; 80053; 85025; 99284-25